=== PATIENT | female | born 2000 | race Caucasian/White ===

== ENCOUNTER → 2022-03-10 09:57 | Outpatient (BNVA) | payer BC, SELFPAY | PROVIDERS: PCP Nurse Practitioner Family; Visit Provider Nurse Practitioner Family | DX: D64.9 Anemia, unspecified (principal); N93.8 Other specified abnormal uterine and vaginal bleeding; D50.9 Iron deficiency anemia, unspecified | CPT/HCPCS: 82607; 82728; 83550; 85025 ==

== ENCOUNTER → 2022-03-26 09:17 | Outpatient (BNVA) | payer BC, SELFPAY | PROVIDERS: PCP Nurse Practitioner Family; Visit Provider Dermatology | DX: D48.9 Neoplasm of uncertain behavior, unspecified (principal); L30.0 Nummular dermatitis | CPT/HCPCS: 88305 ==

== ENCOUNTER → 2023-02-09 11:25 | Outpatient (BNVA) | payer BC, SELFPAY | PROVIDERS: PCP Nurse Practitioner Family; Visit Provider Nurse Practitioner Family | DX: R20.2 Paresthesia of skin (principal); D50.9 Iron deficiency anemia, unspecified | CPT/HCPCS: 80053; 82607; 83540; 83735; 85025 ==

== ENCOUNTER → 2024-03-15 11:15 | Outpatient (BNVA) | payer BC, SELFPAY | PROVIDERS: PCP Nurse Practitioner Family; Visit Provider Nurse Practitioner Family | DX: Z00.00 Encounter for general adult medical examination without abnormal findings (principal); Z12.4 Encounter for screening for malignant neoplasm of cervix; Z12.39 Encounter for other screening for malignant neoplasm of breast | CPT/HCPCS: 87624 ==